=== PATIENT | female | born 1995 | race Caucasian/White ===

== ENCOUNTER 2017-03-07 13:56 | Emergency (ER) | payer OTHER ==
--- NOTE | 2017-03-07 14:05 | CPEKG ---
Heart Rate: 68 RR Interval: 882 P-R Interval: 136 QRSD Interval: 78 QT Interval: 404 QTC Interval: 430 P [place]: 47 QRS [place]: -6 T Wave [place]: 28 EKG Severity - NORMAL ECG - EKG Impression: SINUS RHYTHM Electronically Signed By: Anastasia Marsh 07-Mar-2017 15:31:58
[2017-03-07 14:12] VITALS: O2SAT 97
[2017-03-07] MEDS ORDERED: NS 1,000 ML IV ONE (14:14)
[2017-03-07 14:20] LABS: % IMMATURE GRANULYOCYTES 0.4 % (0.0-1.1); ABSOLUTE IMMATURE GRANULOCYTES 0.03 10^3/uL (0.00-0.10); ADD DIFF? NO; ADD MORPH? NO; ADD SCAN? NO; ATYPICAL LYMPHOCYTE FLAG 30 (0-99); FRAGMENT RBC FLAG 0 (0-99); HEMATOCRIT 45.9 % (38.0-47.0); HEMOGLOBIN 15.1 g/dL (12.6-16.3); LEFT SHIFT FLG 10 (0-99); LIPEMIA HEMOLYSIS FLAG 80 (0-99); MEAN CELL HEMOGLOBIN 30.5 pg (27.9-34.1); MEAN CELL HEMOGLOBIN CONCENTR. 32.9 g/dL (32.4-36.7); MEAN CELL VOLUME 92.7 fL (81.5-99.8); MEAN PLATELET VOLUME 10.2 fL (8.7-11.7); PLATELET CLUMPS FLAG 0 (0-99); PLATELET COUNT 329 10^3/uL (150-400); RED BLOOD CELL COUNT 4.95 10^6/uL (4.18-5.33); RED CELL DISTRIBUTION WIDTH 12.7 % (11.5-15.2)
[2017-03-07] MEDS ORDERED: ACETAMINOPHEN 500 MG TAB PO ONE (14:20)
[2017-03-07 14:27] LABS: ANION GAP 14 mEq/L (8-16); CALCIUM 10.2 mg/dL (8.5-10.4); CARBON DIOXIDE 25 mEq/l (22-31); CHLORIDE 106 mEq/L (97-110); CREATININE 0.8 mg/dL (0.6-1.0); GLOMERULAR FILTRATION RATE > 60; GLUCOSE 96 mg/dL (70-100); POTASSIUM 4.2 mEq/L (3.5-5.2); SODIUM 145 mEq/L (134-144)
--- NOTE | 2017-03-07 15:16 | EDPHY ---
H & P Stated Complaint: syncope, head lac posterior scalp Time Seen by Provider: 03/07/17 14:27 HPI/ROS: CHIEF COMPLAINT: Syncope, head laceration HISTORY OF PRESENT ILLNESS: 21-year-old female arrives via ambulance after a witnessed syncopal event while at work. Patient works as a medical sales consultant at the [employer], reports that she has been on her feet for an extended period of time, started to feel hot, sweaty, lightheaded and had a witnessed syncopal event. There is no seizure activity witnessed by bystanders. She sustained laceration to her occipital head. There was no postictal.. No antecedent chest pain, dyspnea, nausea, vomiting. She had eaten breakfast before going to work. She notes a history of similar which typically occur while she is standing for prolonged periods. 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 She also in remembers an episode where she was standing in a choir practice and had a syncopal episode. She has no history of seizure disorder. At this time she is complaining of headache. She denies midline C-spine pain, peripheral paresthesia, weakness, numbness, chest pain or trauma, back pain or trauma, abdominal pain or trauma, nausea, vomiting. PRIMARY CARE PROVIDER: [facility] REVIEW OF SYSTEMS: A ten point review of systems was performed and is negative with the exception of the items mentioned in the HPI PAST MEDICAL & SURGICAL HISTORY: No pertinent medical or surgical history SOCIAL HISTORY:works in retail PHYSICAL EXAM (Prior to examination, patient consented to physical exam, hands were washed and my usual and customary physical exam procedures followed) 1) GENERAL: Well-developed, well-nourished, alert and oriented. Appears to be in no acute distress. 2) HEAD: Normocephalic, 4 cm transverse occipital laceration with no galea defects 3) HEENT: Pupils equal, round, reactive to light bilaterally. Sclera anicteric. Nasopharynx, oropharynx, clear, no lesions. No septal hematoma. No rhinorrhea. No otorrhea. Ears bilaterally with normal tympanic membranes. No hemotympanum. 4) NECK: Full range of motion, no meningeal signs. 5) LUNGS: Clear auscultation bilaterally, no wheezes, no rhonchi, no retractions. 6) HEART: Regular rate and rhythm, no murmur, no heave, no gallop. 7) ABDOMEN: No guarding, no rebound, no focal tenderness, negative McBurney's, negative Glez's, negative Rovsing's, negative peritoneal sign, 8) MUSCULOSKELETAL: No peripheral edema or discoloration. 9) BACK: no visual or palpable abnormality. 10) SKIN: No rash, no petechiae. 11) Psychiatric: Patient is oriented X 3, there is no agitation. DIFFERENTIAL DIAGNOSIS: Not necessarily in any particular order, my differential diagnosis includes, but is not limited to, concussion, skull fracture, intraparenchymal contusion, seizure, orthostatic hypotension, subarachnoid, subdural and epidural hematoma. The patient understands that this diagnosis is provisional and can never be 100% accurate. - Medical/Surgical History Hx Asthma: No Hx Chronic Respiratory Disease: No Hx Diabetes: No Hx Cardiac Disease: No Hx Renal Disease: No Hx Cirrhosis: No Hx Alcoholism: No Hx HIV/AIDS: No Hx Splenectomy or Spleen Trauma: No Other PMH: SPINAL FUSION - Social History Smoking Status: Never smoked Constitutional: Initial Vital Signs Temperature (C) 36.6 C 03/07/17 14:09 Heart Rate 80 03/07/17 14:09 Respiratory Rate 22 H 03/07/17 14:09 Blood Pressure 117/89 H 03/07/17 14:09 O2 Sat (%) 97 03/07/17 14:09 O2 Delivery Mode Room Air Allergies/Adverse Reactions: No Known Allergies Allergy (Verified 03/07/17 14:09) Home Medications: Medication Instructions Recorded NK [No Known Home Meds] 03/07/17 Medical Decision Making - Diagnostics Imaging: Discussed imaging studies w/ director call center sales Radiologist Procedures: Procedure: Laceration repair. I explained the indications, risks and benefits for both laceration repair and anesthetic administration. Verbal consent was obtained from the patient . The laceration on the occipital region was anesthetized using 0.5% bupivicaine with epinephrine . After anestheticadministered the patient was observed for a period of time and had no apparent adverse effects. The wound was cleaned, prepped, draped in normal sterile fashion and explored to its base. No foreign body seen, no foreign bodies palpated. There were no deep structures involved. No galea defects identified. The wound was repaired with 8 maikol. The wound repair was simple. The procedure was performed by myself. Patient has been informed that scarring will occur, although efforts have been made to minimize this. ED Course/Re-evaluation: Head CT ordered in this patient for trauma for the following indication: loss of consciousness and visible head trauma 4:20 p.m.: Patient re-evaluated with serial exams. She is answering questions appropriately with no altered mentation. We discussed multiple possible etiologies for her syncopal episodes including, but not limited to, seizure, cardiac arrhythmia, vasovagal syncope. I recommended follow up with primary care and Neurology. She may also necessitate cardiology evaluation although she notes no chest pain or palpitations that pre CD the incident. I also recommended no standing for prolonged periods. She has also been informed that seizure is not ruled out. She has been given my usual and customary seizure precautions and instructions. - Data Points Laboratory Results: Laboratory Results 03/07/17 14:05 03/07/17 14:05 03/07/17 03/07/17 03/07/17 14:14 14:05 14:05 WBC 7.45 10^3/uL 10^3/uL (3.80-9.50) RBC 4.95 10^6/uL 10^6/uL (4.18-5.33) Hgb 15.1 g/dL g/dL (12.6-16.3) Hct 45.9 % % (38.0-47.0) MCV 92.7 fL fL (81.5-99.8) MCH 30.5 pg pg (27.9-34.1) MCHC 32.9 g/dL g/dL (32.4-36.7) RDW 12.7 % % (11.5-15.2) Plt Count 329 10^3/uL 10^3/uL (150-400) MPV 10.2 fL fL (8.7-11.7) Neut % (Auto) 39.8 % % (39.3-74.2) Lymph % (Auto) 48.9 % H % (15.0-45.0) [place] % (Auto) 7.4 % % (4.5-13.0) Eos % (Auto) 1.9 % % (0.6-7.6) Baso % (Auto) 1.6 % % (0.3-1.7) Nucleat RBC Rel Count 0.0 % % (0.0-0.2) Absolute Neuts (auto) 2.97 10^3/uL 10^3/uL (1.70-6.50) Absolute Lymphs (auto) 3.64 10^3/uL H 10^3/uL (1.00-3.00) Absolute Monos (auto) 0.55 10^3/uL 10^3/uL (0.30-0.80) Absolute Eos (auto) 0.14 10^3/uL 10^3/uL (0.03-0.40) Absolute Basos (auto) 0.12 10^3/uL H 10^3/uL (0.02-0.10) Absolute Nucleated RBC 0.00 10^3/uL 10^3/uL (0-0.01) Immature Gran % 0.4 % % (0.0-1.1) Immature Gran # 0.03 10^3/uL 10^3/uL (0.00-0.10) Sodium 145 mEq/L H mEq/L (134-144) Potassium 4.2 mEq/L mEq/L (3.5-5.2) Chloride 106 mEq/L mEq/L (97-110) Carbon Dioxide 25 mEq/l mEq/l (22-31) Anion Gap 14 mEq/L mEq/L (8-16) BUN 11 mg/dL mg/dL (7-23) Creatinine 0.8 mg/dL mg/dL (0.6-1.0) Estimated GFR > 60 Glucose 96 mg/dL mg/dL (70-100) Calcium 10.2 mg/dL mg/dL (8.5-10.4) Beta HCG, Qual NEGATIVE Medications Given: Discontinued Medications Acetaminophen (Tylenol) 1,000 mg PO EDNOW ONE Stop: 03/07/17 14:21 Last Admin: 03/07/17 14:26 Dose: 1,000 mg Sodium Chloride (Ns) 1,000 mls @ 0 mls/hr IV EDNOW ONE; Wide Open PRN Reason: Protocol Stop: 03/07/17 14:15 Last Admin: 03/07/17 14:25 Dose: 1,000 mls Departure - Departure Disposition: Home, Routine, Self-Care Clinical Impression: Orthostatic syncope Head injury Qualifiers: Encounter type: initial encounter Qualified Code(s): S09.90XA - Unspecified injury of head, initial encounter Laceration of scalp Qualifiers: Encounter type: initial encounter Qualified Code(s): S01.01XA - Laceration without foreign body of scalp, initial encounter Condition: Good Instructions: Head Injury (ED), Syncope (ED), Laceration (ED) Additional Instructions: You may have had a seizure. Until your cleared by the your neurologist do not: Drive, swim alone, climb to heights, operate machinery Referrals: RADHA MCNEAL [Other] - 1-2 days without fail Bruce Gill DO [Doctor of Osteopathy] - 2-3 days, call for appt. (Dr Gill is a neurologist) Return, to the ER in 7 days for staple removal [Other] - As per Instructions
[2017-03-07 16:10] VITALS: RESP 16
[2017-03-07 16:46] VITALS: BP 108/65; PULSE 80; TEMP 98.1
== END 2017-03-07 16:47 | disposition home or self-care (01) ==
LOC: EDUNIT#
PROC: 0HQ0XZZ Repair Scalp Skin, External Approach (ICD-10-PCS; principal; 2017-03-07)
DX: S01.01XA Laceration without foreign body of scalp, initial encounter (principal); R55 Syncope and collapse; X58.XXXA Exposure to other specified factors, initial encounter

== ENCOUNTER → 2017-03-18 | Outpatient (CLI) | payer OTHER ==
--- NOTE | 2017-03-21 12:28 | CPEEG ---
[f rep st] ELECTROENCEPHALOGRAM DATE OF STUDY: 03/18/2017 DATE OF INTERPRETATION 03/21/2017 PROCEDURE PERFORMED: Electroencephalogram. INTERPRETATION: Normal EEG during wakefulness and drowsiness. There were no potentially epileptoge maksim abnormalities present during the recording. REPORT: This EEG contains 10-11 Hz alpha activity to the posterior head regions. There was no abno rmal activation at rest, during photic stimulation, or hyperventilation. With hyperventilation, the patient had a normal hyperventilation buildup response composed of [id number]-amplitude anter ior dominant delta frequency activity. The patient briefly became drowsy during the study. There w as no abnormal activation during drowsiness or during times of arousal. /[id number]/MODL
== END ==
LOC: FCPNEURO 13:31
PROVIDERS: ATTEND Physician Assistant Medical
DX: R40.20 Unspecified coma (principal)

== ENCOUNTER → 2017-03-24 | Outpatient (CLI) | payer OTHER | LOC: FIMAGING 13:09 | PROVIDERS: ATTEND Physician Assistant Medical | DX: R55 Syncope and collapse (principal); S06.0X0A Concussion without loss of consciousness, initial encounter ==

== ENCOUNTER 2017-06-28 13:17 | Emergency (ER) | payer OTHER ==
[2017-06-28 13:26] VITALS: RESP 16
--- NOTE | 2017-06-28 13:49 | EDPHY ---
H & P Stated Complaint: hit head on ceiling tuesday/adorno/photosensitive/had concussion in february Time Seen by Provider: 06/28/17 13:49 HPI/ROS: CHIEF COMPLAINT: Headache and photosensitivity after minor head injury HISTORY OF PRESENT ILLNESS: The patient presents to the ED with headache and photosensitivity for the past 2 days. The patient reportedly struck her head while sitting up from bed on a angled drywall ceiling. Patient did not lose consciousness. The patient does have a history of a prior head injury which resulted in post concussive symptoms for nearly a month. She had follow up with Neurology and reportedly had a negative EEG. The patient had a negative MRI of her brain in March. The patient is not anticoagulated. The patient denies any focal numbness or weakness. The patient denies recent fever, cough or congestion. The patient denies neck pain. She denies additional traumatic injury. REVIEW OF SYSTEMS: A comprehensive 10 point review of systems is otherwise negative aside from elements mentioned in the history of present illness. Source: Patient Exam Limitations: No limitations - Personal History LMP (Females 10-55): Over 28 Days Ago Current Tetanus/Diphtheria Vaccine: Yes - Medical/Surgical History Hx Asthma: No Hx Chronic Respiratory Disease: No Hx Diabetes: No Hx Cardiac Disease: No Hx Renal Disease: No Hx Cirrhosis: No Hx Alcoholism: No Hx HIV/AIDS: No Hx Splenectomy or Spleen Trauma: No Other PMH: SPINAL FUSION - Social History Smoking Status: Never smoked - Physical Exam Exam: General Appearance: Alert, no distress Head: No hematoma, no bony crepitus, no abrasion, no laceration Eyes: Pupils equal, round, reactive ENT, Mouth: No hemotympanum, no oral trauma Neck: Nontender, trachea midline Respiratory: No chest wall tender, subcutaneous air, lungs clear bilaterally Cardiovascular: Regular rate and rhythm Abdomen: Abdomen is soft and nontender, pelvis stable Skin: No lacerations, No abrasion Back: No midline T/L/S pain Extremities: Nontender, full range of motion Neurological: A&Ox3, normal motor function, normal sensory exam Constitutional: Initial Vital Signs Temperature (C) 36.8 C 06/28/17 13:22 Heart Rate 90 06/28/17 13:22 Respiratory Rate 16 06/28/17 13:22 Blood Pressure 104/70 06/28/17 13:22 O2 Sat (%) 96 06/28/17 13:22 O2 Delivery Mode Room Air Allergies/Adverse Reactions: No Known Allergies Allergy (Verified 06/28/17 13:22) Home Medications: Medication Instructions Recorded NK [No Known Home Meds] 03/07/17 Medical Decision Making ED Course/Re-evaluation: The patient presents to the ED with symptoms of a mild current concussion following a minor head injury. The patient has no clinical evidence of a hematoma, skull fracture or abnormal neurologic examination. She is not anticoagulated. I do not feel that she has a skull fracture or intracranial hemorrhage. I do not feel that CT scan imaging is indicated. The patient will be given customary concussion aftercare instructions. She will be given a prescription for Zofran. She is advised to take Tylenol and ibuprofen. She will be referred to Dr. Carson our concussion specialist. She can also follow up with Dr. Robert Roldan from Neurology who has seen her in the past. Differential Diagnosis: Differential diagnosis considered includes skull fracture, intracranial hemorrhage, concussion Departure - Departure Disposition: Home, Routine, Self-Care Clinical Impression: Concussion Condition: Good Instructions: Concussion (ED) Additional Instructions: 1. Tylenol and ibuprofen as needed for pain. 2. Zofran as needed for nausea 3. Please follow up with Dr. Carson our concussion specialist for any ongoing symptoms of headache past 3-5 days. 4. You may also follow up with Dr. Robert Roldan from Neurology was seen you in the past. 5. Return to the ED for markedly worsening headache, neck pain, numbness or weakness. Referrals: Fernanda Carson MD [Medical Doctor] - As per Instructions Robert Roldan MD [Medical Doctor] - As per Instructions
[2017-06-28 14:39] VITALS: BP 105/62; PULSE 87; TEMP 98.6; O2SAT 97
== END 2017-06-28 14:36 | disposition home or self-care (01) ==
DX: S06.0X0A Concussion without loss of consciousness, initial encounter (principal); W22.8XXA Striking against or struck by other objects, initial encounter